=== PATIENT | female | born 1965 | race Caucasian/White ===

== ENCOUNTER → 2019-03-07 | Outpatient (CLI) | payer BC ==
--- NOTE | 2019-03-07 16:46 | RAD ---
EXAM: Thoracic spine, 3 views; lumbar spine, 3 views; pelvis and left hip, 3 views. HISTORY: Pain. COMPARISON: None. FINDINGS: Thoracic spine: 3 views of the thoracic spine are obtained. There is increased thoracic kyphosis. There is no listhesis. The vertebral bodies are normal in height. There is multilevel endplate remodeling. Lumbar spine: 3 views of the lumbar spine are obtained. There is minimal lumbar levoscoliosis centered at L3. There is grade 1 anterolisthesis of L4 and L5 and L5 on S1, measuring 4 mm. The vertebral bodies are normal in height and the disc spaces are preserved. There is facet arthropathy at the lower lumbar levels. Pelvis and left hip: A frontal view the pelvis and 2 views of the left hip are obtained. There is no fracture, dislocation or subluxation. IMPRESSION: 1. Multilevel degenerative change throughout the thoracolumbar spine. 2. Mild lumbar scoliosis and grade 1 anterolisthesis at the lower lumbar levels. 3. No acute osseous finding. Electronically signed by: Diane Milton MD (03/07/2019 4:43 PM) [id number]
== END | disposition home or self-care (01) ==
LOC: DXRAD 16:05
PROVIDERS: ATTEND Registered Nurse
DX: M54.5 Low back pain (principal); M41.86 Other forms of scoliosis, lumbar region; M25.552 Pain in left hip; M47.895 Other spondylosis, thoracolumbar region; M12.88 Other specific arthropathies, not elsewhere classified, other specified site
CPT/HCPCS: 72072; 72100; 73502